=== PATIENT | female | born 1990 | race Hispanic/Latino ===

== ENCOUNTER 2020-01-07 09:03 | Emergency (ER) | payer SELFPAY ==
[2020-01-07] MEDS ORDERED: IBUPROFEN 200 MG TAB PO ONE (10:08)
[2020-01-07] MEDS ORDERED: IBUPROFEN 400 MG TAB ONE (10:08)
--- NOTE | 2020-01-07 10:28 | ER ---
Nurse's Notes [facility] Name: Sveta Ortiz Age: 29 yrs Sex: Female : 1990 Arrival Date: 01/07/2020 Time: 09:10 Bed 15 Private MD: Diagnosis: Influenza due to certain identified influenza viruses Presentation: 01/06 09:31 Chief complaint: Patient states: cough, chills, back pain, body aches X 3 days +fever. iw Coronavirus screen: The patient has NOT traveled to a country currently being monitored by the [facility] within the last 14 days. Proceed with normal triage procedures. Ebola Screen: Patient negative for fever greater than or equal to 101.5 degrees Fahrenheit, and additional compatible Ebola Virus Disease symptoms Patient denies exposure to infectious person. Patient denies travel to an Ebola-affected area in the 21 days before illness onset. No symptoms or risks identified at this time. Initial Sepsis Screen: Does the patient meet any 2 criteria? No. Patient's initial sepsis screen is negative. Does the patient have a suspected source of infection? No. Patient's initial sepsis screen is negative. Risk Assessment: Do you want to hurt yourself or someone else? Patient reports no desire to harm self or others. 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 - Social history:: Smoking status: Patient uses street drugs, marijuana. Screenin:43 Abuse screen: Denies threats or abuse. Nutritional screening: No deficits noted. em Tuberculosis screening: No symptoms or risk factors identified. Fall Risk None identified. Assessment: 10:04 General: Appears in no apparent distress. uncomfortable, ill, Behavior is calm, em cooperative, Reports fever for > 3 days. Pain: Complains of pain in "body aches" Pain currently is 8 out of 10 on a pain scale. Pain began 4 days ago. Neuro: Level of Consciousness is awake, alert, obeys commands, Oriented to person, place, time, situation, Appropriate for age. Cardiovascular: Capillary refill < 3 seconds Patient's skin is warm and dry. Respiratory: Reports cough that is productive, Airway is patent Respiratory effort is even, unlabored, Respiratory pattern is regular, symmetrical. GI: Patient currently denies nausea, vomiting. Derm: Skin is intact, is healthy with good turgor, Skin is pink, warm \\T\\ dry. Musculoskeletal: Capillary refill < 3 seconds, Range of motion: intact in all extremities. Vital Signs: 09:31 BP 134 / 86; Pulse 76; Resp 16 S; Temp 100.8; Pulse Ox 100% on R/A; Weight 50.8 kg; iw Height 5 ft. 1 in. (154.94 cm); Pain 810; 09:31 Body Mass Index 21.16 (50.80 kg, 154.94 cm) ED Course: 09:10 Patient arrived in ED. mr 09:19 [facility] Araiza [facility] 09:19 Farzad Peoples MD is Attending Physician. [facility] 09:32 Triage completed. iw 09:33 Arm band placed on. iw 09:37 Nahun Olivarez, ERNESTO is Primary Nurse. em 09:43 Patient has correct armband on for positive identification. Bed in low position. Call em light in reach. Pulse ox on. NIBP on. 10:55 No provider procedures requiring assistance completed. Patient did not have IV access em during this emergency room visit. Administered Medications: 10:04 Drug: Motrin 600 mg Route: PO; em 10:56 Follow up: Response: No adverse reaction em Outcome: 10:28 Discharge ordered by . [facility] 10:55 Discharged to home ambulatory. em 10:55 Condition: good 10:55 Discharge instructions given to patient, Instructed on discharge instructions, follow up and referral plans. medication usage, Demonstrated understanding of instructions, follow-up care, medications, Prescriptions given X 1. 11:01 Patient left the ED. em Signatures: Jayy Araiza PA PA jmm Rivera, Mary mr Nahun Olivarez, RN RN em Hailee Duque RN RN
--- NOTE | 2020-01-07 10:28 | EDPHYS ---
Physician Documentation [facility] Name: Sveta Ortiz Age: 29 yrs Sex: Female : 1990 Arrival Date: 01/07/2020 Time: 09:10 Bed 15 Private MD: ED Physician Farzad Peoples HPI: 01/06 09:54 This 29 yrs old Female presents to ER via Ambulatory with complaints of Flu jmm Symptoms. 09:54 The patient or guardian reports cough. Onset: The symptoms/episode began/occurred jmm gradually, 3 day(s) ago. Modifying factors: The symptoms are alleviated by nothing. the symptoms are aggravated by nothing. Associated signs and symptoms: Pertinent positives: fever, nausea, rhinorrhea. This is a 29 year old female with no chronic medical conditions that presents to the ED with complaints of cough, congestion beginning 3 days ago with fever beginning 2 days ago. . 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 - Social history:: Smoking status: Patient uses street drugs, marijuana. ROS: 09:54 Constitutional: Positive for body aches, fever. jmm 09:54 Respiratory: Positive for cough. 09:54 All other systems are negative. Exam: 09:54 Constitutional: This is a well developed, well nourished patient who is awake, alert, jmm and in no acute distress. Head/Face: atraumatic. Eyes: EOMI, no conjunctival erythema appreciated ENT: Moist Mucus Membranes Neck: Trachea midline, Supple Chest/axilla: Normal chest wall appearance and motion. Cardiovascular: Regular rate and rhythm. No edema appreciated Respiratory: Normal respirations, no respiratory distress appreciated Abdomen/GI: Non distended, soft Back: Normal ROM Skin: General appearance color normal MS/ Extremity: Moves all extremities, no obvious deformities appreciated, no edema noted to the lower extremities Neuro: Awake and alert, normal gait Psych: Behavior is normal, Mood is normal, Patient is cooperative and pleasant Vital Signs: 09:31 BP 134 / 86; Pulse 76; Resp 16 S; Temp 100.8; Pulse Ox 100% on R/A; Weight 50.8 kg; iw Height 5 ft. 1 in. (154.94 cm); Pain 8/10; 09:31 Body Mass Index 21.16 (50.80 kg, 154.94 cm) iw MDM: 09:54 Patient medically screened. [email or web address] 10:27 Data reviewed: vital signs, nurses notes. Counseling: I had a detailed discussion with abhishek the patient and/or guardian regarding: the historical points, exam findings, and any diagnostic results supporting the discharge/admit diagnosis, lab results, the need for outpatient follow up, to return to the emergency department if symptoms worsen or persist or if there are any questions or concerns that arise at home. 01/06 09:37 Order name: Flu; Complete Time: 10:12 iw Administered Medications: 10:04 Drug: Motrin 600 mg Route: PO; em 10:56 Follow up: Response: No adverse reaction em Disposition: 17:14 Co-signature as Attending Physician, Farzad Peoples MD I agree with the assessment and kdr plan of care. Disposition: 01/07/20 10:28 Discharged to Home. Impression: Influenza due to certain identified influenza viruses. - Condition is Stable. - Discharge Instructions: Influenza, Adult. - Prescriptions for Tamiflu 75 mg Oral Capsule - take 1 tablet by ORAL route every 12 hours for 5 days; 10 tablet. - Medication Reconciliation Form, Thank You Letter, Antibiotic Education, Prescription Opioid Use, Work release form form. - Follow up: Private Physician; When: 2 - 3 days; Reason: Recheck today's complaints, Continuance of care, Re-evaluation by your physician. Signatures: Dispatcher [employer] Farzad Fraser MD MD [facility] Jayy Araiza PA PA jmm Munoz, Edgar, RN RN em Hailee Duque RN RN iw Corrections: (The following items were deleted from the chart) 11:01 10:28 01/07/2020 10:28 Discharged to Home. Impression: Influenza due to certain em identified influenza viruses. Condition is Stable. Forms are Medication Reconciliation Form, Thank You Letter, Antibiotic Education, Prescription Opioid Use. Follow up: Private Physician; When: 2 - 3 days; Reason: Recheck today's complaints, Continuance of care, Re-evaluation by your physician. [email or web address]
[2020-01-07 11:09] VITALS: BP 134/86; TEMP 100.8; O2SAT 100
== END 2020-01-07 11:01 | disposition home or self-care (01) ==
LOC: ER 09:03
DX: J10.1 Influenza due to other identified influenza virus with other respiratory manifestations (principal)
CPT/HCPCS: 87804; 99283